=== PATIENT | male | born 1995 | race Caucasian/White ===

== ENCOUNTER 2018-05-26 17:49 | Emergency (ER) | payer SELFPAY ==
--- NOTE | 2018-05-26 17:51 | ER Report ---
History and Physical Time Seen By MD: 17:51 HPI/ROS CHIEF COMPLAINT: [facility] clearance HISTORY OF PRESENT ILLNESS: 23-year-old male patient presents to emergency room with complaint of needing a clearance for half-way. Patient was arrested at the [employer] [facility] [employer] [facility] football game. There was an altercation with the police following his arrest. Patient states that he does have pain, however he will not tell me where the pain is. Patient states she will not tell me any thing else. Home Meds Unable to Obtain Active Prescriptions or Reported Meds Past Medical/Surgical History Patient refused to give any medical or surgical history. Reviewed Nurses Notes: Yes Constitutional Vital Sign - Last 24 Hours 05/26/18 05/26/18 17:50 18:09 Temp 99.0 Pulse 130 Resp 18 18 B/P (MAP) 129/84 (99) Pulse Ox 94 O2 Delivery Room Air Physical Exam Patient refused to allow me to do a physical exam. I informed him that that was his right. I will go ahead and discharge him to the long-term center at this time. Medical Decision Making ED Course/Re-evaluation ED Course Patient was admitted to an exam room, history and physical were attempted. Patient refused to give any history side from the fact that he was having pain. He refused telemetry with the patient verbalized. He also refused a physical exa m. I informed patient we will go ahead and discharge him to half-way. Patient did become tearful after that and did talk with the nurse. He allowed her to get his vital signs. He also requested talk to me. I did go in and talk with him again. He stated that time that he would just like to go home. I informed him that that was not ostomy at this time. Patient is currently under arrest, which was verified by the police, and he will need to be reluctant have that taken care of prior to being allowed to go home. Patient will be discharged from the hospital here. Decision to Disposition Date: May 26, 2018 Decision to Disposition Time: 17:57 Depart Departure Latest Vital Signs Vital Signs Date Time Temp Pulse Resp B/P (MAP) Pulse Ox O2 Delivery O2 Flow Rate FiO2 05/26/18 18:09 99.0 130 18 129/84 (99) 94 Room Air Impression: Primary Impression: Medical clearance for incarceration Additional Impression: Alcohol intoxication Condition: Improved [facility] F New Scripts Unable to Obtain Active Prescriptions or Reported Meds Patient Instructions: Alcohol Intoxication (ED) Additional Instructions: Increase fluid intake. Get plenty of rest. Follow up with your primary care with any concerns. Return to the ER if condition worsens. Problem Qualifiers Additional Impression: Alcohol intoxication Complication of substance-induced condition: uncomplicated Qualified Codes: F10.920 - Alcohol use, unspecified with intoxication, uncomplicated MICHELE DAWSON May 26, 2018 17:51
[2018-05-26 18:09] VITALS: BP 129/84
== END 2018-05-26 18:13 | disposition home or self-care (01) ==
LOC: ER 17:53
DX: F10.920 Alcohol use, unspecified with intoxication, uncomplicated (principal)
CPT/HCPCS: 99281